=== PATIENT | female | born 1970 | race African-American/Black ===

== ENCOUNTER 2023-04-27 10:43 | Day surgery (SDC) | payer OTHER, BC ==
[2023-04-24 12:33] VITALS: BMI 27.1
[2023-04-27 12:53] VITALS: RESP 16; TEMP 97.9
[2023-04-27 12:57] VITALS: BP 97/69; PULSE 77
== END 2023-04-27 13:00 | disposition home or self-care (01) ==
LOC: FASU-ENDO 10:43
PROVIDERS: ATTEND Internal Medicine Gastroenterology
PROC: 0DJD8ZZ Inspection of Lower Intestinal Tract, Via Natural or Artificial Opening Endoscopic (ICD-10-PCS; principal; 2023-04-27 12:17)
DX: Z12.11 Encounter for screening for malignant neoplasm of colon (principal); K64.1 Second degree hemorrhoids
CPT/HCPCS: 84703